=== PATIENT | female | born 1955 | race Caucasian/White ===

== ENCOUNTER 2016-12-31 11:10 | Day surgery (SDC) | payer OTHER ==
[~2016-12-31] VITALS: Ht 154.9 cm; Wt 79.4 kg
[~2016-12-31 11:10] MED LIST: 0.9% Sodium Chloride 1,000 ML IV SCH; FLUT12AE8 IH; LATA2.5D6 OP; LEVO50TA6 PO; METO-272 PO; MULT-1018 PO; OLP.1OP5 OD; OMEP20CA11 PO; Sodium Chloride LOK Flush 10 mL Syringe IV PRN; fentaNYL-PF 50 mCg/mL 2 mL Inj IVPUSH PRN
[2016-12-31 11:23] VITALS: BP 118/65; PULSE 73; RESP 14; O2SAT 99
[2016-12-31 13:10] VITALS: BP 105/57; PULSE 67; RESP 16; O2SAT 100
[2016-12-31 13:21] VITALS: BP 118/69; PULSE 71; RESP 16; O2SAT 100
--- NOTE | 2016-12-31 23:05 | ENDO ---
[address] [address] ENDOSCOPY PROCEDURE PATIENT: SHERI IGLESIAS : 1955 MR#: [id number] ADMIT: 12/31/2016 JOB ID: [id number] DATE OF PROCEDURE: 12/31/2016 PRIMARY PROVIDER: Osvaldo Bond MD. PROCEDURES: 1. Esophagogastroduodenoscopy with biopsy. 2. Colonoscopy with cold snare polypectomy. INDICATIONS: This is a 61-year-old female with a history of colon polyps and symptoms of constipation, along with bloating, epigastric pain. She has a history of some form of gastric ulcerations and both upper and lower endoscopy have been requested. EQUIPMENT: 1. GIF-Q180 2. PCF-H180AL. SEDATION: 1. Versed 6 mg. 2. Fentanyl 125 mcg. COMPLICATIONS: None identified. BOWEL PREPARATION: Fair, adequate exam. PROCEDURE INFORMATION: After the risks and benefits were explained, written and verbal informed consent was obtained. The patient was brought into the endoscopy suite and placed into the left lateral decubitus position. Sedation was achieved using the above-stated medications with the addition of oxygen via nasal cannula. The scope was introduced into the mouth through the bite block and advanced to the second portion of the duodenum. The scope was slowly withdrawn. Retroflexed views were accomplished in the stomach. The stomach was decompressed. The scope removed from the patient who tolerated the procedure well. The patient was then turned around. A digital rectal examination accomplished. Moderate internal and external nonbleeding, nonthrombosed hemorrhoids were noted. The scope was then introduced into the rectum and advanced to the cecum as identified by the appendiceal orifice and ileocecal valve. The scope was slowly withdrawn to carefully examine the mucosa for any defects or lesions. Retroflexed views were avoided in the rectum. Multiple direct views were made through the dentate line for exclusion of pathology. The colon was decompressed. The scope was removed from the patient who tolerated the procedure well. FINDINGS: 1. Duodenum: This was unremarkable from the bulb through the second portion. 2. Stomach: The patient had a moderate macronodular gastropathy. Random biopsies were taken for exclusion of Helicobacter or any other underlying pathology. Retroflexed views were otherwise unremarkable. No outlet obstruction. No ulcers. No mass lesions. 3. Esophagus: The squamocolumnar junction correlated with the top of the gastric folds. The GEJ was at 38 cm from the incisors. No acute erosive changes. No strictures. No mass lesions. 4. Colon: Around the hepatic flexure there was a small polyp, perhaps 4 to maybe 5 mm, removed with cold snare. No other significant mucosal pathology appreciated throughout. ENDOSCOPIC DIAGNOSES: 1. Moderate gastropathy. 2. Otherwise visually unremarkable esophagogastroduodenoscopy. 3. Colon polyp. 4. Hemorrhoids. RECOMMENDATIONS: 1. In the context of family history of colon cancer and a personal history of colon polyp, repeat colonoscopy in five years. 2. Proceed with clinic instructions for improved bowel regimen. 3. If Helicobacter is found, it will need to be eradicated with standard triple therapy. 4. Follow up in GI clinic on clinical response in the next approximately six weeks.
--- NOTE | 2017-01-01 13:55 | PATH ---
SURGICAL PATHOLOGY Attending Physician:Ata Michaels CASE STATUS: Signed Out PATIENT NAME: SHERI IGLESIAS PID: [id number] : 1955 DATE COLLECTED:12/31/2016 21:54 SPECIMEN: 1: Gastric, Biopsy 2: Colon, Biopsy CLINICAL HISTORY: 1). GASTRIC BIOPSY 2). COLON POLYP FINAL DIAGNOSIS: 1.GASTRIC BIOPSY: MODERATE CHRONIC GASTRITIS INVOLVING FUNDIC MUCOSA WITH PROMINENT FOVEOLAR HYPERPLASIA, NEGATIVE FOR ATYPIA. Immunohistochemistry for Helicobacter pending, to be reported by addendum. Negative for intestinal metaplasia. Negative for dysplasia and malignancy. 2.COLON POLYP: TUBULAR ADENOMA INVOLVING BOTH BIOPSY FRAGMENTS. ICD10 code K29.70 GROSS DESCRIPTION: The specimen is received in two formalin filled containers labeled with the patient's name. 1). The specimen is sublabeled "gastric" and consists of a 0.3 x 0.2 x 0.2 CM portion of tissue which is entirely submitted in cassette 1A. 2). The specimen is sublabeled "colon polyp" and consists of 2 portions of tissue which aggregate to 0.2 x 0.2 x 0.2 CM. The specimen is entirely submitted in cassette 2A. 12/31/[address] [facility] MICRO DESCRIPTION: See diagnosis. ICD-9 CODES: CPT CODES: 1: 46701, 88437 2: 46919 PROCEDURE/ADDENDA: Immunohistochemistry SPI Interpretation {Not Entered} Results-Comments Immunohistochemistry Results 1.GASTRIC BIOPSY: NEGATIVE FOR HELICOBACTER PYLORI BY IMMUNOHISTOCHEMISTRY. This test was developed and its performance characteristics determined by [facility]. It has not been cleared or approved by the [place]. Food and Drug Administration. The FDA has determined that such clearance or approval is not necessary. This test is used for clinical purposes. It should not be regarded as investigational or for research. Electronically Signed Out Karthik Adams MD Electronically Signed Out Karthik Adams MD [facility] [address], [place] [address] Technical component performed at [facility], [facility] [address], [address]
== END 2016-12-31 23:59 | disposition home or self-care (01) ==
LOC: END 11:10
PROVIDERS: ATTEND Internal Medicine Gastroenterology
DX: D12.2 Benign neoplasm of ascending colon (principal); K64.8 Other hemorrhoids; K64.4 Residual hemorrhoidal skin tags; Z86.010 Personal history of colon polyps; Z80.0 Family history of malignant neoplasm of digestive organs; K29.50 Unspecified chronic gastritis without bleeding; K31.9 Disease of stomach and duodenum, unspecified; G47.30 Sleep apnea, unspecified; K59.00 Constipation, unspecified
CPT/HCPCS: 43239; 45385; 99153; G0500; J7030